=== PATIENT | female | born 1960 | race Caucasian/White ===

== ENCOUNTER 2023-07-31 12:46 | Emergency (ER) | payer OTHER, SELFPAY ==
[2023-07-31 12:56] VITALS: BP 128/89
[2023-07-31 13:26] LABS: % Basophils 0.6 % (0-2); % Eosinophils 2.2 % (0-6); % Immature Granulocytes 0.5 % (0-0.5); % Lymphocytes 20.1 % (20.5-51.1); % Monocytes 7.9 % (1.7-9.3); % Neutrophils 68.7 % (42.2-75.2); Absolute Eosinophils 0.1 10^3/uL (0-0.7); Absolute Lymphocytes 1.3 10^3/uL (1.2-3.4); Absolute Monocytes 0.5 10^3/uL (0.1-0.6); Absolute Neutrophils 4.3 10^3/uL (1.4-6.5); Hematocrit 42.1 % (37.0-47.0); Hemoglobin 14.2 g/dL (12.0-16.0); Mean Corp Hgb Conc. 33.7 g/dL (33.0-37.0); Mean Corpuscular Hgb 30.5 pg (27.0-31.0); Mean Corpuscular Volume 90.3 fL (81.0-99.0); Mean Platelet Volume 10.1 fL (7.4-10.4); Nucleated Red Blood Cells % 0 %; Platelet Count 256 10^3/uL (130-400); Red Blood Cell Count 4.66 10^6/uL (4.20-5.40); Red Cell Dist. Width 13.1 % (11.5-14.5); White Blood Cell Count 6.2 10^3/uL (4.8-10.8)
[2023-07-31 13:46] LABS: ALT (SGPT) 27 U/L (0-35); AST (SGOT) 26 U/L (14-36); Albumin 3.9 g/dl (3.5-5.0); Alkaline Phosphatase 61 U/L (38-126); Blood Urea Nitrogen 14 mg/dl (7-17); Calcium 9.3 mg/dl (8.4-10.2); Carbon Dioxide 28 mmol/L (22-30); Chloride 105 mmol/L (98-107); Glucose 80 mg/dl (70-99); Lipase 170 U/L (23-300); Sodium 137 mmol/L (135-145); Total Bilirubin 0.5 mg/dl (0.2-1.3); Total Protein 6.7 g/dl (6.3-8.2); eGFR > 60.00
[2023-07-31 13:58] LABS: Troponin I < 0.012 ng/ml
--- NOTE | 2023-07-31 16:34 | ED.GENMED ---
History of Present Illness
General
Chief Complaint: Chest Pain
Source: patient
Exam Limitations: none
Time Seen by Provider: 07/31/23 16:24
Nursing documentation reviewed up to this point in time: agreed with
Travel History
Have you had any contact with someone who has COVID-19?: No
Do you have any symptoms of coronavirus? Fever > 100 degrees, chills, cough, shortness of breath, sore throat, loss of taste or smell, muscle aches, or headache?: Yes
Symptoms:: cough
History of Present Illness
History of Present Illness:
63 yr old female presents to the ER for evaluation of chest pain. She reports she has had intermittent episodes of left-sided chest pain (under left )off and on since Saturday, for the past 4 days. She reports it is very sharp but intermittent.
It lasts between 5 and 7 minutes however today she presented to the ER because today episode lasted for about 15 minutes. She denies any radiation of pain. She does have pain when she takes a deep breath when she is having the chest pain. She
denies any recent trauma/lifting. She denies any history of DVT PE.
She had COVID in July,July 16 tested positive and has had a cough since.
She is not a smoker. No history of CAD.
Past History
Past History
ED Past Medical History: Other (c dif) and Other (Headaches, with frequent migraine)
ED Past Surgical History: Other (Lumpectomy, I&D with tooth extraction, several hysteroscopys, hysterectomy, tonsillectomy)
Social History
Personal:
Living: with family
Employment: Employed
Review of Systems
Review of Systems
Allergies reviewed?: Yes
All Other Systems: ROS reviewed and negative except as documented in HPI and ROS
Constitutional: Reports no symptoms; Denies fever, fatigue or chills
EENT: Reports no symptoms
Respiratory: Denies trouble breathing
Cardiac: Reports other (intermittent left side chest pain for past several days )
ABD/GI: Reports no symptoms
: Reports no symptoms
Musculoskeletal: Reports no symptoms
Skin: Reports no symptoms
Neurological: Reports no symptoms
Psychiatric: Reports no symptoms
Phy Exam
General Physical Exam
General Presentation: no apparent distress
General age: appears stated age
General Skin: warm and dry
General Habitus: normal
General Mental: alert
General Hydration: appears well hydrated
Cardiovascular Exam
Cardiovascular Exam: regular rate/rhythm, no murmur and normal peripheral pulses
Pulmonary Exam
Pulmonary Exam: lungs clear
Neurological Exam
Neurological Exam: alert and oriented x3
Musculoskeletal Exam
Musculoskeletal Exam: full ROM
Skin Exam
Skin Exam: normal color and warm/dry
Psychiatric Exam
Psychiatric Exam: normal mood/affect
Scores
Heart Score for Chest Pain Patients
STEMI patient?: Not applicable
Course
Orders/Labs/Results
Orders:
Orders
07/31/23 12:48
Electrocardiogram (*1) Urgent
Reason for Study: Chest Pain
EKG- Treatment ONCE
07/31/23 13:08
Complete Blood Count/With Diff Urgent
Comprehensive Metabolic Panel Urgent
Lipase Urgent
Troponin I Urgent
07/31/23 17:03
DDimer [D-Dimer] Urgent
07/31/23 17:43
Chest [CR Chest - 2 Views ] Urgent
Comment:
Reason For Exam: cp
Abnormal Lab Results
07/31/23
13:08
Lymphocytes % 20.1 L %
(20.5-51.1)
07/31/23 13:08
07/31/23 13:08
Vital Signs
Initial and Last Documented VS:
Initial Vital Signs
Temp Pulse Resp BP Pulse Ox
98.0 F 86 16 128/89 99
07/31/23 12:56 07/31/23 12:56 07/31/23 12:56 07/31/23 12:56 07/31/23 12:56
Last Documented Vital Signs
Temp Pulse Resp BP Pulse Ox
98.0 F 81 18 124/74 99
07/31/23 12:56 07/31/23 17:09 07/31/23 17:09 07/31/23 17:09 07/31/23 17:09
MDM/Problems Addressed
Differential Diagnosis Includes:
Not limited to muscular pain, pleuritic pain, less likely ACS less likely PE less likely dissection
MDM/Problems Addressed:
Patient is a 63-year-old female who presents with left-sided chest pain underneath her breast intermittently for the past several days she reports it is sharp lasted 5 to 7 minutes then goes away. Today lasted 15 minutes which have prompted her to
come to the ER. She did have COVID recently. She denies any fever or chills. She does have a mild cough.
Patient presents awake alert no acute distress asymptomatic now. She has no radiation of pain no back pain no arm pain.
Patient is EKG is unremarkable with a heart rate of 73 cardiac troponin as well as D-dimer are negative. No acute findings on chest x-ray. Possible pleuritic. Patient does report that she is under a lot of stress. Patient stable for discharge
home asymptomatic care will DC on chest pain hotline
*Radiology
Radiology exam reviewed: radiology read reviewed
*Pulse Oximetry
Patient hypoxic: no
*EKG
Interpreted by ED Provider?: Yes
Comparison EKG: no changes
Heart Rate: 73
Rate: normal
Rhythm: sinus
Ischemia: no ischemia
*Critical Care Note
Total Time (30-74mins, 75-104mins- exclusive of procedures): Not Applicable
ED Attending Note
-
Portions of this chart may have been created with voice recognition software.� Occasional wrong word or��sound alike� substitutions may have occurred due to the inherent limitations of voice recognition software.
Discharge Plan
Departure
Patient Disposition: Home (Routine Discharge)
Date of Disposition: 07/31/23
Time of Disposition: 18:56
Patient with high blood pressure during this ER visit?: No
Covid-19: Not Applicable
Discharge Problem:
Chest pain
Instructions: Chest Pain CBC Follow Up
Prescriptions:
No Action
citalopram 10 MG tablet
5 mg PO DAILY
nitazoxanide [Alinia] 500 MG tablet
500 mg PO DAILY
cephalexin 500 MG capsule
500 mg PO BID Qty: 10 1RF
sulfamethoxazole-trimethoprim 1 TABLET tablet
1 tab PO BID Qty: 10 1RF
magnesium citrate [Citroma] 300 ML solution
300 ml PO ONCE Qty: 1 0RF
Referrals:
Jose Jones MD [Active] -
Kita Hayden CRNP [Family Provider] -
Activity Restrictions/Additional Instructions:
As discussed your workup was unremarkable here in the ER. Please follow-up with cardiology. You were placed on the cardiology hotline. You should receive a phone call in the next several days however if you do not please call the office to
schedule an appointment as soon as possible. Return if any worsening of symptoms
Interventions
Interventions:
*Risk Screen - Suicide Last Done: 07/31/23 16:27
*General Assessment Last Done: 07/31/23 16:27
*Neglect/Abuse Screening Last Done: 07/31/23 16:27
ED- Fall Risk Assessment Last Done: 07/31/23 16:27
*ED COVID-19 Vaccine History Last Done: 07/31/23 12:56
ED- Cardiac Assessment Last Done: 07/31/23 16:27
[2023-07-31 17:09] VITALS: BP 124/74
[2023-07-31 17:25] LABS: D-Dimer 0.39 ug/mlFEU (0.00-0.50)
== END 2023-07-31 19:35 | disposition home or self-care (01) ==
LOC: EMR 12:46
PROVIDERS: Emergency Medicine; Nurse Practitioner; EMERGENCY PHYSICIAN Emergency Medicine; FAMILY PHYSICIAN Nurse Practitioner Family
DX: R07.9 Chest pain, unspecified (principal); R07.1 Chest pain on breathing; R05.9 Cough, unspecified; U07.1 COVID-19
CPT/HCPCS: 99285; 71046; 80053; 83690; 84484; 85025; 85379; 93005

== ENCOUNTER → 2023-08-27 07:29 | Outpatient (REF) | payer OTHER, SELFPAY | LOC: RCS 07:29 | PROVIDERS: ATTENDING PHYSICIAN Internal Medicine Cardiovascular Disease; FAMILY PHYSICIAN Nurse Practitioner Family | DX: R07.2 Precordial pain (principal) | CPT/HCPCS: 93017 ==

== ENCOUNTER → 2023-09-03 08:47 | Outpatient (REF) | payer OTHER, SELFPAY | LOC: HWRAD 08:47 | PROVIDERS: ATTENDING PHYSICIAN Nurse Practitioner Family | DX: M85.89 Other specified disorders of bone density and structure, multiple sites (principal) | CPT/HCPCS: 77080 ==

== ENCOUNTER 2025-02-12 06:19 | Day surgery (SDC) | payer OTHER, SELFPAY | END 2025-02-12 15:41 | disposition home or self-care (01) | LOC: GI 06:19 | PROVIDERS: ATTENDING PHYSICIAN Specialist | DX: R12 Heartburn (principal); K31.A19 Gastric intestinal metaplasia without dysplasia, unspecified site; K22.2 Esophageal obstruction; K31.7 Polyp of stomach and duodenum; K57.30 Diverticulosis of large intestine without perforation or abscess without bleeding; K64.8 Other hemorrhoids; K31.A11 Gastric intestinal metaplasia without dysplasia, involving the antrum; D12.3 Benign neoplasm of transverse colon; Z12.11 Encounter for screening for malignant neoplasm of colon; Z86.0101 Personal history of adenomatous and serrated colon polyps; Z80.0 Family history of malignant neoplasm of digestive organs | CPT/HCPCS: 45385; 43239; 88305; 88342 ==

== ENCOUNTER 2025-03-18 15:35 | Observation (INO) | payer OTHER, SELFPAY ==
[2025-03-18] VITALS (9 sets, daily range): BP systolic 119–161; BP diastolic 76–135; BMI 29.3; BMI 28.2
[2025-03-18 12:23] LABS: Hematocrit 43.1 % (37.0-47.0); Hemoglobin 14.0 g/dL (12.0-16.0); Mean Corp Hgb Conc. 32.5 g/dL (33.0-37.0); Mean Corpuscular Volume 91.5 fL (81.0-99.0); Nucleated Red Blood Cells % 0 %; Platelet Count 216 10^3/uL (130-400); Red Cell Dist. Width 13.2 % (11.5-14.5)
--- NOTE | 2025-03-18 12:27 | ED.GENMED ---
History of Present Illness
General
Chief Complaint: Weakness
Source: patient and family
Time Seen by Provider: 03/18/25 11:39
History of Present Illness
History of Present Illness:
64-year-old female with past medical history of migraine disorder, questionable history of a CVA in her 20s, IBS presenting to the emergency department for evaluation after she started feeling abnormal on the left side of her body last night around
9 PM described as if she were 'gumby' and that she was drifting to her left-hand side. Patient thought it was related to a stressful day at work so decided to go to bed, woke up still feeling this way and upon getting up to ambulate felt as if she
were drifting to the left, contacted her primary care provider who was able to get her in for an appointment, at that appointment it was noted she was much more hypertensive than usual and was recommended to come to the ER for further evaluation.
Patient notes no other symptoms at present time denying any speech difficulties, visual disturbances, chest pain, shortness of breath, focal weakness or numbness. She was unable to tell me much information about the possible CVA when she was in her
20s but was able to tell me that her mother from a hemorrhagic CVA in her 90s.
Past History
Past History
ED Past Medical History: Other (c dif) and Other (Headaches, with frequent migraine)
ED Past Surgical History: Other (Lumpectomy, I&D with tooth extraction, several hysteroscopys, hysterectomy, tonsillectomy)
Social History
Tobacco: Non-smoker
Alcohol: None
Drug: None
Personal:
Living: with family
Employment: Employed
Review of Systems
Review of Systems
All Other Systems: ROS reviewed and negative except as documented in HPI and ROS
Phy Exam
Physical Exam
Physical Exam:
GENERAL: Alert , in no apparent distress
HEAD: Normocephalic atraumatic
EYE: pupils equal and reactive, 3mm bilateral, EOMI, no visual fied cuts
NECK: Supple
ENT: o/p clr, mmm.
CARDIAC: Regular rate and rhythm .
LUNGS: Clear breath sounds bilaterally, no acute respiratory distress, no wheezes/rales/rhonchi
ABDOMEN: Soft, without focal tenderness, no r/g, no cvat
NEUROLOGICAL: Alert and oriented, no focal neuro deficits, [place] x 4. strength 5/5 b/l UE and LE. sensory grossly intact throughout, ambulatory with steady but slow gait, no aphasia, no dysarthria, no droop. no drift
SKIN: Warm and dry, skin intact.
MUSCULOSKELETAL: No edema, well perfused.
PSYCH: Normal and appropriate interaction.
Scores
NIH Stroke Score
Level of Consciousness: 0 - Alert
LOC Questions: 0-Answers both correctly
LOC Commands: 0-Performs both correctly
Best Horizontal Gaze: 0-Normal
Visual Hardy: 0=Normal, no visual loss
Facial Palsy: 0=Normal, symmetrical
Motor - Right Arm: 0=No drift 10 seconds
Motor - Left Arm: 0=No drift 10 seconds
Motor - Right Le-No drift 5 seconds
Motor - Left Le-No drift 5 seconds
Limb Ataxia: 0-Absent
Sensation: 0-Normal
Best Language: 0-No aphasia
Dysarthria: 0-Normal
Extinction and Inattention: 0-No abnormality
NIH Total Score:: 0
Heart Failure Risk
Heart Failure Risk Score: Not Applicable
Heart Score for Chest Pain Patients
STEMI patient?: Not applicable
Withdrawal Assessment of Alcohol
Withdrawal Assessment Completed?: Not applicable
Course
Orders/Labs/Results
Orders:
Orders
03/18/25 12:09
CBC/With Diff [Complete Blood Count/With Diff] Urgent
Cardiovascular Evaluation Urgent
Comment: ADD ON
Comprehensive Metabolic Panel Urgent
Ferritin Urgent
Comment: ADD ON
Folate Urgent
Comment: ADD ON
Prothrombin Time Urgent
Vitamin B12 Urgent
Comment: ADD ON
03/18/25 12:19
CT Head & Neck Angio W/wo IV Urgent
Comment:
Reason For Exam: left sided deficits/weakness
03/18/25 12:37
Lyme Progressive Urgent
TSH Urgent
03/18/25 14:01
Aspirin 325 mg PO NOW STA
Clopidogrel Bisulfate [Plavix] 300 mg PO NOW STA
03/18/25 14:22
Clopidogrel Bisulfate [Plavix] 300 mg .ROUTE .STK-MED ONE
03/18/25 14:35
Rizatriptan Orally Disintegrat [[employer]inator (Orally Disintegrating)] 10 mg PO ONCE ONE
03/18/25 14:40
Admit/Transfer Patient As Directed
Co-Sign Provider:
Level of Care: Observation services
Assign to:: Telemetry
Physician / Group: Maggie Moreno
Diagnosis: CVA/TIA symptoms
Reason for Telemetry: CVA/TIA
Date to Stop Telemetry: 03/21/25
Time to Stop Telemetry: 11:00
PRN Pain Medication Management As Directed
May give lesser potent ordered pain med per pt: Yes
preference::
Protocol:: Medication orders for pain may be administered in a
manner that supports deferring to patient preference
when the pt is:
- Requesting an ordered lesser potent pain medication.
Least to most potent pain medications are defined
as: acetaminophen < NSAID < tramadol < opioids
(morphine, oxycodone, hydromorphone).
- Requesting a lesser dose of the same medication IF
ORDERED.
- Requesting a less intrusive route of administration
if both routes are prescribed by the provider (PO <
IV).
03/18/25 14:41
Code Status As Directed
Resuscitation Status: Full Code
03/18/25 14:46
Urinalysis Routine
Date Specimen was Collected: 03/18/25
Time Specimen was Collected: 15:09
03/18/25 Dinner
Regular
At Your Request: Full Participation
03/18/25 15:03
Add On- LAB Routine
Tests Added?: folate, ferritin, B12, lipid panel, hbA1c
03/18/25 15:16
ESR [Erythrocyte Sed Rate] Urgent
Hemoglobin A1c [Glycohemoglobin (HgbA1c)] Routine
Troponin I Urgent
03/21/25 11:00
DC Protocol for Telemetry ONCE
Abnormal Lab Results
03/18/25
12:09
MCHC 32.5 L g/dL
(33.0-37.0)
MPV 10.7 H fL
(7.4-10.4)
Lymphocytes % 20.1 L %
(20.5-51.1)
Total Cholesterol 246 H mg/dl
(50-199)
03/18/25 12:09
03/18/25 12:09
Vital Signs
Initial and Last Documented VS:
Initial Vital Signs
Temp Pulse Resp BP Pulse Ox
98.7 F 70 18 161/105 98
03/18/25 11:31 03/18/25 11:31 03/18/25 11:31 03/18/25 11:31 03/18/25 11:31
Last Documented Vital Signs
Temp Pulse Resp BP Pulse Ox
98.7 F 60 18 133/90 99
03/18/25 11:31 03/18/25 14:00 03/18/25 14:00 03/18/25 13:28 03/18/25 14:00
MDM/Problems Addressed
Differential Diagnosis Includes:
CVA
ICH
Malignancy
HTN crisis
Thyroid dysfunction
Electrolyte imbalance
Less concern for infectious etiology
MDM/Problems Addressed:
64-year-old female ending to the emergency department for evaluation of left-sided weakness since last night around 9 PM. I did not call a stroke alert given patient is outside the window of TNK administration as well as her NIH score is 0 and not
a candidate however we did order a stat CT of the head/CTA of the head and neck. Patient is still hypertensive at time of my exam, 180/95. Labs and EKG ordered. Disposition pending
*Radiology
Radiology exam reviewed: radiology read reviewed
*Pulse Oximetry
SaO2: 98
Oxygen Mode of Delivery: Room air
Patient hypoxic: no
*Wash Test Checker Interpretation
Rate: normal
Heart Rate: 84
Rhythm: sinus
*Critical Care Note
Total Time (30-74mins, 75-104mins- exclusive of procedures): Not Applicable
Patient Management
Discussion with other providers: Hospitalist and [employer]
Escalation/DeEscalation of care consider admission/obs:
CT and CTA are negative for any acute pathologies. Seen by neurology who still concerned patient could have had a CVA versus atypical migraine presentation. They are recommending admission for DAPT as well as MRI. They will continue to follow-up
with the patient's admission. Hospitalist team was notified and accepts for continued evaluation and treatment.
ED Attending Note
-
Portions of this chart may have been created with voice recognition software.� Occasional wrong word or��sound alike� substitutions may have occurred due to the inherent limitations of voice recognition software.
Discharge Plan
Departure
Patient Disposition: Admit
Date of Disposition: 03/18/25
Time of Disposition: 14:02
Presentation/result/management discussed w/ accepting MD/DO: Hospitalist
Discharge Problem:
Suspected cerebrovascular accident (CVA)
Interventions
Interventions:
*Risk Screen - Suicide Last Done: 03/18/25 11:31
*General Assessment Last Done: 03/18/25 11:31
*Neglect/Abuse Screening Last Done: 03/18/25 11:31
*ED- Fall Risk Assessment Last Done: 03/18/25 11:31
*ED COVID-19 Vaccine History Last Done: 03/18/25 11:31
*ED Influenza Vaccine History Last Done: 03/18/25 11:31
ED- Cardiac Assessment Last Done: 03/18/25 12:01
ED- Neurological Assessment Last Done: 03/18/25 15:21
ED- Pulmonary Assessment Last Done: 03/18/25 12:01
[2025-03-18 12:34] LABS: INR 0.89; PT 12.5 Sec (11.4-14.6)
[2025-03-18 12:46] LABS: ALT (SGPT) 27 U/L (0-35); AST (SGOT) 30 U/L (14-36); Alkaline Phosphatase 62 U/L (38-126); Blood Urea Nitrogen 14 mg/dl (7-17); Calcium 9.5 mg/dl (8.4-10.2); Carbon Dioxide 28 mmol/L (22-30); Chloride 107 mmol/L (98-107); Estimated Creatinine Clearance 79 ml/min; Glucose 98 mg/dl (70-99); Potassium 4.0 mmol/L (3.5-5.1); Sodium 139 mmol/L (135-145); eGFR > 60.00
[2025-03-18 12:55] LABS: Albumin 4.4 g/dl (3.5-5.0); Total Protein 7.0 g/dl (6.3-8.2)
--- NOTE | 2025-03-18 13:24 | CON.NEURO4 ---
Addendum entered and electronically signed by Lorne Gutierrez MD 03/18/25 20:57:
I have seen and examined the patient on 03/18/2025. I have also discussed the patient's assessment and the management plan with nurse practitioner Mami Cotto and I agree with her diagnosis and management plan. Given below is my assessment and
management plan.
The patient is a 64 years old female who presented to the hospital with left-sided weakness and sensory change. The patient is followed by neurologist Dr. Abad for migraines. She has a history of migraine with aura, however, she denies headache
at this time. Patient reports that yesterday (03/17/25) she finished working at her desk around 2100 and suddenly felt 'dizzy,' as if she had been 'drugged.' She went to stand up and noticed that her left arm and leg felt heavy and uncoordinated and
she felt that when she would walk she was drifting to the left side.
On neurologic examination, the patient is alert and oriented x 3, speech is clear, the cranial nerves II to XII are grossly intact, the strength is grossly 4/5 in the left upper and lower extremities and the strength is grossly 5/5 in the right
upper and lower extremities, the sensations are grossly intact and the cerebellar examination does not show limb ataxia.
NIH stroke scale is equal to 2.
The CT of the head did not show any acute intracranial abnormality. CTA of the head and neck was unremarkable.
The patient is not a candidate for thrombolytic therapy as she has a low NIH stroke scale as well as she is outside the time window. The patient is going to be on stroke pathway with aspirin 81 mg daily, Plavix 75 mg daily for 21 days and
atorvastatin 40 mg daily. Plan is to get MRI of the brain and an echocardiogram.
Original Note:
Consultation - Neurology 4
-
CONSULTING PHYSICIAN: Lorne Gutierrez MD
REFERRING PHYSICIAN: ER/Neo Hussein PA-C
DICTATED BY: SYBIL August
DATE/TIME OF REQUEST: 03/18/25
DATE/TIME OF CONSULTATION: 03/18/25
Reason for Consultation: Left-sided weakness
History of Present Illness:
This is a 64-year-old female who has presented to the hospital with report of left-sided heaviness and sensation change. Patient is followed by Neurology Dr. Abad at [facility] for migraines. She reports an extensive history of
migraine headaches associated with visual aura, photo/phonophobia, nausea, and vomiting. She is currently on Aimovig for headache prevention and uses rizatriptan for headache relief.
Patient reports that yesterday (03/17/25) she finished working at her desk around 2100 and suddenly felt 'dizzy,' as if she had been 'drugged.' She went to stand up and noticed that her left arm and leg felt heavy and uncoordinated. She had a
stressful day at work and proceeded to go to bed thinking she was just tired. Upon waking up this morning (03/18/25), she notes that her left side still felt 'heavy,' in addition to hot, and walking was abnormal due to drifting to the left. She also
notes a left posterior head pressure. She is sitting in the dark currently due to feeling that a migraine may develop but currently denies her typical migraine symptoms. CTA head/neck was obtained on arrival and is negative for any acute
abnormalities. NIHS is 2 for slight drift in the LUE and LLE. She is not a candidate for TNK/IAT due to low NIHSS, outside of time window, and no LVO. She denies any vision changes, speech/swallow difficulty, and numbness. She reports having a
generalized heaviness sensation with prior migraines but never weakness like she has now. She is not taking any blood thinning medications.
Past Medical History: Migraine with aura, stroke-like symptoms in her 20's, c. diff, endometriosis, L facial cellulitis, asthma, diverticulosis
Surgical History: Lumpectomy, I&D with tooth extraction, hysterectomy, tonsillectomy
Family History: Mother- intracranial hemorrhage
Social History: Denies tobacco, alcohol, and illicit drug use.
Allergies: Clindamycin, amoxicillin, polymyxin B.
Home Medications: See below.
Review of Symptoms:
Patient denies any fever, headache, chest pain, shortness of breath, GI or symptoms.
�Per the HPI.�All systems are reviewed negative except above.
Physical Exam:
The patient is afebrile, abdomen is nondistended, breathing is unlabored, skin is warm and dry, no edema.
NIH Stroke Scale:
I performed the NIH stroke scale on the patient on 03/18/25 at 1345. The patient scored 2 points on the NIH stroke scale assessment, which were assigned as follows: See below.
Neurologic Examination:
The patient is awake, alert and oriented x 3. She is able to follow commands and answer questions appropriately. There is no aphasia or dysarthria. On cranial nerve assessment, pupils are 3 mm bilateral, round and reactive to light and
accommodation. Visual hardy are full. Extraocular movements are intact. Facial sensations are intact and bilaterally symmetrical, there is no facial asymmetry. Hearing is intact bilaterally to normal conversation volume. Tongue palate and uvula are
midline. Motor strengths are 5/5 right upper, 5-/5 left upper, 5/5 right lower, 5-/5 left lower extremity on medical research [place] scale. There is slight drift in the LUE and LLE. No involuntary movement noted. Sensations of touch are intact and
bilaterally symmetrical. There was no extinction noted on double simultaneous stimulation. Coordination is intact by finger to nose bilaterally.
Lab Results: See below.
Neuro Imaging:
1. CTA Head/Neck 03/18/25: CT the Head without acute intracranial abnormality. CTA of the Neck without internal carotid artery stenosis, internal carotid artery dissection or vertebral artery dissection bilaterally. CTA of the Head with patent
proximal intracranial arterial circulation bilaterally.
Differentials for the patient's presentation include:
1. Left-sided weakness and sensation change; etiology is possibly complex migraine but given no history of previous symptoms, cannot entirely exclude a small stroke or TIA producing symptoms.
Patient has the following risk factors for their symptoms: hx migraine with aura
IV Tenecteplase/IAT candidacy: She is not a candidate for TNK/IAT due to low NIHSS, outside of time window, and no LVO.
Recommendations:
-Initiate DAPT with aspirin 81mg and clopidogrel 75mg daily for 21 days.
-Permissive hypertension SBP <220, DBP<120 until 2100 tonight, then goal normotension.
-MRI brain noncontrast pending.
-NIHSS and neurological checks per unit guidelines.
-Provide patient with a stroke education packet.
-LDL goal <70. check a lipid panel.
-Goal normoglycemia, check a hbA1c.
-Checking blood work for metabolic abnormalities.
-PT/OT evaluations.
-DVT prophylaxis.
Discussed patient care with: Dr. Gutierrez, the patient
Vital Signs and Labs
-
Vital Signs and Labs:
Vital Signs
Temp Pulse Resp BP Pulse Ox
98.7 F 55 14 160/92 98
03/18/25 11:31 03/18/25 12:30 03/18/25 12:30 03/18/25 12:00 03/18/25 12:30
Lab Results
03/18/25 12:09
03/18/25 12:09
PT 12.5 Sec (11.4-14.6) 03/18/25 12:09
INR 0.89 03/18/25 12:09
Sodium 139 mmol/L (135-145) 03/18/25 12:09
Potassium 4.0 mmol/L (3.5-5.1) 03/18/25 12:09
BUN 14 mg/dl (7-17) 03/18/25 12:09
Glucose 98 mg/dl (70-99) 03/18/25 12:09
Calcium 9.5 mg/dl (8.4-10.2) 03/18/25 12:09
Medications
-
Home Medications
�Medication �Instructions �Recorded
cephalexin 500 mg capsule 500 mg PO BID #10 caps 01/29/15
citalopram 10 mg tablet 5 mg PO DAILY 01/29/15
nitazoxanide 500 mg tablet (Alinia) 500 mg PO DAILY 01/29/15
sulfamethoxazole 800 1 tab PO BID #10 tabs 01/29/15
mg-trimethoprim 160 mg tablet
magnesium citrate (Citroma oral 300 ml PO ONCE ##1 03/08/19
solution)
NIH Stroke Score
Subsequent NIH Scale
Date of Subsequent NIH Scale: 03/18/25
Time of Subsequent NIH Scale: 13:45
NIH Stroke Score
Level of Consciousness: 0 - Alert
LOC Questions: 0-Answers both correctly
LOC Commands: 0-Performs both correctly
Best Horizontal Gaze: 0-Normal
Visual Hardy: 0=Normal, no visual loss
Facial Palsy: 0=Normal, symmetrical
Motor - Right Arm: 0=No drift 10 seconds
Motor - Left Arm: 1=Drift < 10 seconds
Motor - Right Le-No drift 5 seconds
Motor - Left Le-Drift < 5 seconds
Limb Ataxia: 0-Absent
Sensation: 0-Normal
Best Language: 0-No aphasia
Dysarthria: 0-Normal
Extinction and Inattention: 0-No abnormality
NIH Total Score:: 2
Modified Laurel (mRS) Score
Modified [place] Scale (mRS): Slight disability. Able to look after own affairs.
Score: 2
Alteplase Contraindication
Inclusion and Exclusion criteria reviewed: Yes
Reasons for NON-Tx with Thrombolytics ABSOLUTE Exclusions: Greater than 4.5 hrs from onset of sxs
IAT Contraindications: NIHSS < 6
[2025-03-18 13:34] LABS: TSH 2.65 uIU/ml (0.47-4.68)
--- NOTE | 2025-03-18 14:08 | HPS.HSE ---
Addendum entered and electronically signed by Maggie Moreno MD 03/18/25 17:55:
This is an addendum to the H&P written by Mami Velasquez on 03/18/2025. Patient seen and examined independently with HIGH SCHOOL COMPUTER SCIENCE TEACHER.
64-year-old female past medical history of migraines, IBS, presenting with abnormal feeling of heaviness on the left side since last night. �She went to see primary care physician was noted to be hypertensive and told to come to the emergency room.
�Denies any speech difficulties, visual disturbance, chest pain, shortness of breath, focal weakness or numbness.
Vital signs show blood pressure 160 systolic.
Labs unremarkable.
CTA head and neck shows no acute abnormality.
Concern for acute CVA versus atypical migraine. �Aspirin and Plavix given. �Check MRI brain. �Neurology consulted.
Original Note:
Family Physician
-
Family Physician: NOT KNOW UNKNOWN - PT DOES
Chief Complaint
-
left-sided weakness
History of Present Illness
Patient is a 64-year-old female with past medical history significant for migraines and depression/anxiety who presented to [facility] ED for evaluation of left-sided weakness. Patient reports that at around [id number] last night she had an acute onset of
left-sided weakness and heaviness. She describes her arm as feeling heavy and leg feeling like it was suddenly shorter than the right. She felt she kept drifting to the left. She decided to go to bed and when she woke around 0500 this morning the
symptoms were still present. She called and made appointment with primary care who evaluated her and requested she go to ED for further workup. Patient does acknowledge some associated lightheaded/dizziness with symptoms. Denies any vision changes,
confusion, slurred speech, facial droop, chest pain or palpitations.
Medical History
Past Medical History
Past Medical History: Reports Other
Additional Past Medical History:
migraines
depression/anxiety
Past Surgical History: Reports Other
Additional Past Surgical History:
hysteroscopy
lumpectomy
tonsillectomy
hysterectomy
Social History
Tobacco: Non-smoker
Alcohol: Occasional
Drug: None
Employment: Employed
Family History
Family History: Other (Father: bladder cancer, DM; Mother: CVA )
Allergies / Home Medications
Allergies reflects when Allergies were last updated in [facility].
Home Medications with original date entered in [facility]
Allergy/Medication List:
Allergies
Allergy/AdvReac Type Severity Reaction Status Date / Time
clindamycin Allergy Severe C-DIFF Verified 03/18/25 11:34
amoxicillin Allergy Unknown Verified 03/18/25 11:34
polymyxin B Allergy Rash Verified 03/18/25 11:34
Home Medications
Lactobac no.2-Bifidobac no.1-S. thermo 112.5 billion cell capsule (Visbiome) 1 cap PO DAILY 03/18/25
citalopram 40 mg tablet 40 mg PO HS 03/18/25
erenumab-aooe 140 mg/mL subcutaneous auto-injector (Aimovig Autoinjector) 140 mg SC QMONTH 03/18/25
estradiol 0.5 mg tablet 0.5 mg PO DAILY 03/18/25
fluticasone propionate 50 mcg/actuation nasal spray,suspension 1 spray intranasal DAILYPRN PRN sinus congestion 03/18/25
omeprazole 20 mg capsule,delayed release 20 mg PO DAILY 03/18/25
pseudoephedrine HCl 30 mg tablet (Sudafed) 30 mg PO DAILYPRN PRN sinus congestion 03/18/25
rizatriptan 10 mg tablet 10 mg PO PRN PRN migraine 03/18/25
Review of Systems
-
History Source: Patient
Constitutional: Denies Fever or Chills
EENT: Denies Sore Throat
Respiratory: Denies Cough, Hemoptysis or Trouble Breathing
Cardiac: Denies Chest Pain, Diaphoresis, Palpitations or Syncope
Abdomen/GI: Denies Abdominal Pain, Nausea, Vomiting or Diarrhea
: Denies Dysuria or Urgency
Skin: Denies Rash
Neurological: Reports Dizzy, Headache and Weakness; Denies Numbness
Physical Exam
Vital Signs
Vital Signs
Temp Pulse Resp BP Pulse Ox
98.7 F 55 14 160/92 98
03/18/25 11:31 03/18/25 12:30 03/18/25 12:30 03/18/25 12:00 03/18/25 12:30
Physical Exam
General: Well Developed, Well Nourished, No Apparent Distress, Comfortable, Conversant and Obese
HEENT: NormoCephalic, Moist mucous membranes, Atraumatic, Nose Appears Normal and Ears Appear Normal
Respiratory: Clear and Non Labored Respirations; No Wheezes, Rales, Rhonchi or Crackles
Cardiac: S1/S2 and Regular Rhythm; No Murmur, Rub or Gallop
GI: Soft, Non Tender, Non Distended and Normal Bowel Sounds
Musculoskeletal: No Clubbing, No Cyanosis and No Edema
Skin: Warm and IV/Catheter Site
Neuro: Awake, AO x 3, No Motor Deficits, Nonfocal/grossly intact, Cranial Nerves Intact (II-XII) and No Sensory Deficits; No Slurred Speech, Facial Droop, Tremors or Sedated
Hematologic/Lymphatic: No Lymphadenopathy
Psych: Calm and Intact Judgment/Insight
Laboratory Results
-
03/18/25 12:09
03/18/25 12:09
Laboratory Results
PT 12.5 Sec (11.4-14.6) 03/18/25 12:09
INR 0.89 03/18/25 12:09
Total Bilirubin 0.6 mg/dl (0.2-1.3) 03/18/25 12:09
AST 30 U/L (14-36) 03/18/25 12:09
ALT 27 U/L (0-35) 03/18/25 12:09
Alkaline Phosphatase 62 U/L (38-126) 03/18/25 12:09
Data Reviewed
-
CT Scan: Report Reviewed by me (Head and Head/Neck CTA: CT the Head without acute intracranial abnormality. CTA of the Neck without internal carotid artery stenosis, internal carotid artery dissection or vertebral artery dissection bilaterally.
CTA of the Head with patent proximal intracranial arterial circulation bilaterally.)
Lab Data: Labs Reviewed by me
Impression/Plan
-
IMPRESSION/PLAN:
#left-sided weakness 2/2 migraine vs. CVA/TIA
labs unremarkable
Head CT: CT the Head without acute intracranial abnormality.
Head/Neck CTA: CTA of the Neck without internal carotid artery stenosis, internal carotid artery dissection or vertebral artery dissection bilaterally.
CTA of the Head with patent proximal intracranial arterial circulation bilaterally.
- Admit to telemetry
- Consult Neurology
- MRI in morning
- start aspirin and Plavix
- NIH and neuro checks per protocol
#migraines
- continue Aimovig out patient
- continue PRN rizatriptan
#depression/anxiety
- continue citalopram
#GERD
- continue omeprazole
Code status: full code
DVT prophylaxis: SCDs
[2025-03-18] MEDS: ASPIRIN 325 MG PO (14:20)
[2025-03-18] MEDS: PLAVIX 300 MG PO (14:20)
[2025-03-18] MEDS: MAXALT MLT (ORALLY DISINTEGRATING) 10 MG PO (15:15)
[2025-03-18 15:55] LABS: Troponin I < 0.012 ng/ml
[2025-03-18 16:10] LABS: HDL Cholesterol 82 mg/dl; LDL Cholesterol, Calculated 150 mg/dl; Very Low Density Lipoprotein 14 mg/dl (0-30)
[2025-03-18 16:31] LABS: Urine Character Clear (Clear)
[2025-03-18 16:33] LABS: Ferritin 9.9 ng/ml (11.1-264.0)
[2025-03-18 17:04] LABS: Folate 11.0 ng/ml (2.76-20); Vitamin B12 582 pg/ml (239-931)
[2025-03-18] MEDS: TYLENOL 650 MG PO (22:06)
[2025-03-18] MEDS: CELEXA 40 MG PO (22:06)
[2025-03-19] VITALS (7 sets, daily range): BP systolic 115–144; BP diastolic 70–90; PULSE 76–78; O2SAT 96–98
--- NOTE | 2025-03-19 08:50 | PTOTSP ---
Speech Language Pathology
Pt seen for cognitive-linguistic evaluation via the [place] Cognitive Assessment (MOCA), version 8.2. Pt with an overall score of 24/30 where normal range is 26-30. Pt with the following scores on the following subtests:
Visuospatial/executive= 4/5
Naming= 3/3
Immediate memory (not scored)= 5/5 independently
Attention= 6/6
Language= 3/3
Abstraction= 1/2
Delayed recall= 1/5
Orientation= /6
Main difficulty noted with short-term memory. Pt reported some memory changes associated with aging. Unsure if related to this, acute issues, anxiety, lack of sleep, distraction from neighbor, or a combination. Provided brochure for outpatient
rehab as needed pending further testing. CRYPTOGRAPHIC TECHNICIAN to continue to follow.
[2025-03-19 09:09] LABS: Glycohemoglobin (HgbA1c) 5.4 % (4.0-5.6)
[2025-03-19] MEDS: ESTRACE 0.5 MG PO (09:09)
[2025-03-19] MEDS: PROTONIX 40 MG PO (09:09)
[2025-03-19] MEDS: PLAVIX 75 MG PO (09:10)
[2025-03-19] MEDS: ASPIR LOW (ENTERIC COATED) 81 MG PO (09:10)
--- NOTE | 2025-03-19 09:21 | PTOTSP ---
PATIENT ABLE TO DEMONSTRATE INDEPENDENCE WITH MOBILITY ON LEVEL SURFACES WELL ELEVATIONS REQUIRING NO FURTHER ACUTE CARE SKILLED NEEDS. PATIENT EAGER FOR DISCHARGE TO HOME. WILL DISCHARGE FROM P.T. SERVICES AT THIS TIME.
--- NOTE | 2025-03-19 09:21 | PTOTSP ---
Pt presents to OT with grossly intact cognition, good UB AROM, strength, sensation and coordination, and grossly intact vision/visual nunez. Currently at independent level with basic self care, transfers and functional mobility in room and bathroom
without AD. Pt did report headache of 8/10 at onset of session and 5/10 at end of session. No further skilled OT indicated at this time.
[2025-03-19] MEDS: TYLENOL 650 MG PO (09:41)
--- NOTE | 2025-03-19 10:20 | CM ---
Patient seen bedside w/ significant other, initial assessment completed. Patient is a 64-year-old female with past medical history significant for migraines and depression/anxiety who presented to [facility] ED for evaluation of left-sided weakness.
Patient resides w/ sig other in a 2 story townhouse, 2 steps to enter from the outside. Patient is independent in all areas, no DME reported. No SNF/HC hx. 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
Address, points of contact and insurance verified
PCP: Bruce Vasquez
[facility]
Patient admitted under obs services. OOBS form verbally reviewed, copy provided, copy on chart
Therapy assessed patient, no skilled needs indicated
Plan: Home, no needs
--- NOTE | 2025-03-19 10:29 | W.PN.HOSP.TC ---
Addendum entered and electronically signed by Pablo Caldwell MD 03/19/25 16:22:
addendum
MRI study discussed with patient and neurologist. Okay to go home. Outpatient follow-up with neurosurgery if needed
Patient will follow-up with her primary neurologist at [facility]. She was given a report of MRI and she was given CDs of the MRI
Discussed discharge directions with patient and her family. Given a note to work
She verbalized understanding to instruction.
Total discharge time spent to see the patient, examin the patient, review data, discuss discharge plan with patient, family, neurologist, nursing staff around 69 minutes
Original Note:
Today's Communication/Plan
-
f/w neurology recommendations
Assessment / Plan
Assessment / Plan
Physical Exam
General: Well Developed, Well Nourished, No Apparent Distress, Comfortable, Conversant and Obese
HEENT: Normocephalic, Moist mucous membranes, Atraumatic, Nose Appears Normal and Ears Appear Normal
Respiratory: Clear and Non Labored Respirations; No Wheezes, Rales, Rhonchi or Crackles
Cardiac: S1/S2 and Regular Rhythm; No Murmur, Rub or Gallop
GI: Soft, Non Tender, Non Distended and Normal Bowel Sounds
Musculoskeletal: No Clubbing, No Cyanosis and No Edema
Skin: Warm and IV/Catheter Site
Neuro: Awake, AO x 3, No Motor Deficits, Nonfocal/grossly intact, gait is normal, Cranial Nerves Intact (II-XII) and No Sensory Deficits; No Slurred Speech, Facial Droop, Tremors or Sedated
Psych: Calm and Intact Judgment/Insight
#left-sided weakness 2/2 migraine vs. CVA/TIA
she seems to feel better, still subjective weakness in left arm/ leg
CTA/ MRI no acute stroke
PT/OT/Speech: no skilled PT needed.
Per MRI, recommend with contrast due to hyperintense lesion in the high left posterior parietal region
Started on aspirin & Plavix/ statin per neurology
#migraines
- continue Aimovig out patient
- continue PRN rizatriptan
#depression/anxiety
- continue citalopram
#GERD
- continue omeprazole
Total time spent to see the patient, examine the patient, review of data and lab result, discuss treatment plan with patient, nursing staff around 55 minutes
Anticipated Discharge: Within 24 hours
Subjective/Interval History
-
Date of Service: March 19, 2025
No chest pain
No sob
No fevers
Objective Data
-
Vital Signs:
Vital Signs
Temp Pulse Resp BP Pulse Ox
97.6 F 61 16 135/85 98
03/19/25 07:51 03/19/25 07:51 03/19/25 07:51 03/19/25 07:51 03/19/25 09:03
I&O
03/18/25 03/19/25 03/20/25
06:59 06:59 06:59
Intake Total 240 / 240
Balance 240 / 240
--- NOTE | 2025-03-19 16:12 | PTCARENOTE ---
Pt AAO x3, [place] well, OOB in room/to BR; no c/o weakness/dizziness, only c/o LUE occ feels 'heavy'. VSS. Telemetry:NSR. ON room air- pulseox 95%, no SOB noted. Abd soft, rounded, deejay PO well. Voids in BR without difficulty. Resting in bed at
present, anticipating DC to home. Will continue to monitor.
--- NOTE | 2025-03-19 17:10 | W.PN.NEURO.1 ---
Addendum entered and electronically signed by Lorne Gutierrez MD 03/19/25 17:58:
The patient says that she feels stronger today and she says that she has only a very mild left upper and lower extremity weakness.
MRI of the brain with and without contrast did not show acute infarct or intracranial hemorrhage. There is a 1 cm meningioma arising from the left side of the interhemispheric falx causing mild mass effect on the adjacent left parietal lobe gyrus.
Echocardiogram shows an estimated left ventricular ejection fraction of about 55 to 60% and the interatrial septum appears to be normal with no evidence of interatrial shunting.
On neurologic examination, the patient is alert and oriented x 3, speech is clear, the cranial nerves II to XII are grossly intact, the strength is grossly 5-/5 in the left upper and lower extremities and the strength is grossly 5/5 in the right
upper and lower extremities, the sensations are grossly intact and the cerebellar examination does not show limb ataxia.
The patient likely had a TIA versus a complicated migraine, however cannot entirely exclude a small stroke.
The patient was not a candidate for thrombolytic therapy as she has a low NIH stroke scale as well as she is outside the time window. The patient is going to be on stroke pathway with aspirin 81 mg daily, Plavix 75 mg daily for 21 days and
atorvastatin 40 mg daily.
Recommend neurosurgery consultation for a 1 cm meningioma arising from the left side of the interhemispheric falx causing mild mass effect on the adjacent left parietal lobe gyrus.
I discussed with the patient in detail regarding the assessment and the management plan and she verbalized understanding of our discussion.
Follow-up with neurology in 3 weeks in the clinic. The patient will follow-up with her primary neurologist at [facility].
Discussed with Dr. Pablo Caldwell.
Original Note:
Today's Communication / Plan
-
The patient likely had a TIA versus a complicated migraine, however cannot entirely exclude a small stroke.
The patient is not a candidate for thrombolytic therapy as she has a low NIH stroke scale as well as she is outside the time window. The patient is going to be on stroke pathway with aspirin 81 mg daily, Plavix 75 mg daily for 21 days and
atorvastatin 40 mg daily. Plan is to get MRI of the brain and an echocardiogram.
Recommend neurosurgery consultation for a 1 cm meningioma arising from the left side of the interhemispheric falx causing mild mass effect on the adjacent left parietal lobe gyrus.
The patient will follow-up with her primary neurologist at [facility].
I discussed with the patient in detail regarding the assessment and the management plan and she verbalized understanding of our discussion.
Discussed with Dr. Pablo Caldwell.
Subjective/Objective
Subjective Data
Date of Service: March 19, 2025
The patient is a 64 years old female who presented to the hospital with left-sided weakness and sensory change. The patient is followed by neurologist Dr. Abad for migraines. She has a history of migraine with aura, however, she denies headache
at this time. Patient reports that yesterday (03/17/25) she finished working at her desk around 2100 and suddenly felt 'dizzy,' as if she had been 'drugged.' She went to stand up and noticed that her left arm and leg felt heavy and uncoordinated and
she felt that when she would walk she was drifting to the left side.
Today, the patient thinks that she is stronger in the left upper and lower extremities and she has only very mild weakness of the left upper and lower extremities at this time.
MRI of the brain with and without contrast did not show acute infarct or intracranial hemorrhage. There is a 1 cm meningioma arising from the left side of the interhemispheric falx causing mild mass effect on the adjacent left parietal lobe gyrus.
On neurologic examination, the patient is alert and oriented x 3, speech is clear, the cranial nerves II to XII are grossly intact, the strength is grossly 5-/5 in the left upper and lower extremities and the strength is grossly 5/5 in the right
upper and lower extremities, the sensations are grossly intact and the cerebellar examination does not show limb ataxia.
The CT of the head did not show any acute intracranial abnormality. CTA of the head and neck was unremarkable.
The patient likely had a TIA versus a complicated migraine, however cannot entirely exclude a small stroke.
The patient is not a candidate for thrombolytic therapy as she has a low NIH stroke scale as well as she is outside the time window. The patient is going to be on stroke pathway with aspirin 81 mg daily, Plavix 75 mg daily for 21 days and
atorvastatin 40 mg daily. Plan is to get MRI of the brain and an echocardiogram.
Recommend neurosurgery consultation for a 1 cm meningioma arising from the left side of the interhemispheric falx causing mild mass effect on the adjacent left parietal lobe gyrus.
The patient will follow-up with her primary neurologist at [facility].
I discussed with the patient in detail regarding the assessment and the management plan and she verbalized understanding of our discussion.
Discussed with Dr. Pablo Caldwell.
Objective Data
Vital Signs
Temp Pulse Resp BP Pulse Ox
36.4 C 78 16 116/70 95
03/19/25 15:28 03/19/25 15:28 03/19/25 15:28 03/19/25 15:28 03/19/25 16:10
Lab Results
03/18/25 12:09
03/18/25 12:09
PT 12.5 Sec (11.4-14.6) 03/18/25 12:09
INR 0.89 03/18/25 12:09
Sodium 139 mmol/L (135-145) 03/18/25 12:09
Potassium 4.0 mmol/L (3.5-5.1) 03/18/25 12:09
BUN 14 mg/dl (7-17) 03/18/25 12:09
Glucose 98 mg/dl (70-99) 03/18/25 12:09
Calcium 9.5 mg/dl (8.4-10.2) 03/18/25 12:09
LDL Cholesterol, Calc 150 mg/dl 03/18/25 12:09
Vitamin B12 582 pg/ml (239-931) 03/18/25 12:09
Patient Allergies
clindamycin Allergy (Severe, Verified 03/18/25 11:34)
C-DIFF
amoxicillin Allergy (Verified 03/18/25 11:34)
Unknown
polymyxin B Allergy (Verified 03/18/25 11:34)
Rash
Vital Signs and Labs
-
Vital Signs and Labs:
Vital Signs
Temp Pulse Resp BP Pulse Ox
36.4 C 78 16 116/70 95
03/19/25 15:28 03/19/25 15:28 03/19/25 15:28 03/19/25 15:28 03/19/25 16:10
Lab Results
03/18/25 12:09
03/18/25 12:09
PT 12.5 Sec (11.4-14.6) 03/18/25 12:09
INR 0.89 03/18/25 12:09
Sodium 139 mmol/L (135-145) 03/18/25 12:09
Potassium 4.0 mmol/L (3.5-5.1) 03/18/25 12:09
BUN 14 mg/dl (7-17) 03/18/25 12:09
Glucose 98 mg/dl (70-99) 03/18/25 12:09
Calcium 9.5 mg/dl (8.4-10.2) 03/18/25 12:09
LDL Cholesterol, Calc 150 mg/dl 03/18/25 12:09
Vitamin B12 582 pg/ml (239-931) 03/18/25 12:09
Medications
-
Active Medications
Generic Name Dose Route Start Last Admin
Trade Name Freq PRN Reason Stop Dose Admin
Acetaminophen 650 mg 03/18/25 16:37 03/19/25 09:41
Acetaminophen 325 Mg Tablet PO 04/15/25 16:36 650 mg
Q4HPRN PRN Administration
mild pain/VILLALBA/temp> 100.4F
Aspirin 81 mg 03/19/25 08:00 03/19/25 09:10
Aspirin 81 Mg (Enteric Coated) Tablet PO 04/16/25 07:59 81 mg
DAILY MARVA Administration
Atorvastatin Calcium 40 mg 03/19/25 18:00
Atorvastatin (Lipitor) 40 Mg Tablet PO 04/16/25 17:59
QPM MARVA
Citalopram Hydrobromide 40 mg 03/18/25 22:00 03/18/25 22:06
Citalopram 40 Mg Tablet PO 04/15/25 21:59 40 mg
HS MARVA Administration
Clopidogrel Bisulfate 75 mg 03/19/25 08:00 03/19/25 09:10
Clopidogrel 75 Mg Tablet PO 04/16/25 07:59 75 mg
DAILY MARVA Administration
Estradiol 0.5 mg 03/19/25 08:00 03/19/25 09:09
Estradiol 1 Mg Tablet PO 04/16/25 07:59 0.5 mg
DAILY MARVA Administration
Pantoprazole Sodium 40 mg 03/19/25 08:00 03/19/25 09:09
Pantoprazole 40 Mg Delayed Release Tablet PO 04/16/25 07:59 40 mg
DAILY MARVA Administration
Home Medications
�Medication �Instructions �Recorded
Lactobac no.2-Bifidobac no.1-S. 1 cap PO DAILY Gastrointestinal 03/18/25
thermo 112.5 billion cell capsule Issue
(Visbiome)
citalopram 40 mg tablet 40 mg PO HS Depression 03/18/25
erenumab-aooe 140 mg/mL 140 mg SC QMONTH Migraine, 03/18/25
subcutaneous auto-injector prevention
(Aimovig Autoinjector)
estradiol 0.5 mg tablet 0.5 mg PO DAILY Hormonal Agent 03/18/25
fluticasone propionate 50 1 spray intranasal DAILYPRN PRN 03/18/25
mcg/actuation nasal sinus congestion
spray,suspension
omeprazole 20 mg capsule,delayed 20 mg PO DAILY Gastrointestinal 03/18/25
release Issue
pseudoephedrine HCl 30 mg tablet 30 mg PO DAILYPRN PRN sinus 03/18/25
(Sudafed) congestion
rizatriptan 10 mg tablet 10 mg PO PRN PRN migraine 03/18/25
aspirin 81 mg tablet,delayed 81 mg PO DAILY #30 tabs 03/19/25
release
atorvastatin 40 mg tablet 40 mg PO QPM #30 tabs 03/19/25
clopidogrel 75 mg tablet 75 mg PO DAILY #21 tabs 03/19/25
--- NOTE | 2025-03-20 14:00 | W.DCSUMMARY ---
Discharge Summary
Discharge Data
Date of Admission: 03/18/25
Date of Discharge: 03/19/25
-
Pending Results: No
Hospital Course
64 years old female admitted to the hospital left-sided weakness. Patient was evaluated by neurologist. She was out of window for thrombolytic therapy and also low NIH stroke scale. CT of the head did not show acute intracranial abnormality. CTA
of the head and neck was unremarkable. Neurologist recommended MRI study. Initial MRI without contrast did not show acute stroke but there was hyperintense lesion in the high left posterior parietal region may reflect a small mass such as
meningioma or focal gliosis, recommended repeat imaging with gadolinium contrast. repeat MRI with contrast showed no evidence for acute infarct/hemorrhage, 1.0 cm meningioma arising from the left side of the interhemispheric falx causing mild mass
effect on the adjacent left parietal lobe gyrus. Neurologist followed the patient and recommended dual antiplatelet therapy for 21 days then continue with aspirin on board. Also recommended statin therapy. Neurologist felt that event could be TIA
versus a complicated migraine however could not entirely exclude a small stroke. Patient was not taking antiplatelet therapy prior to this event. Patient was counseled regarding potential side effects of aspirin, Plavix and Lipitor, she verbalized
understanding. Result of MRI regarding meningioma will was discussed with neurologist and recommended outpatient neurosurgery evaluation. Patient wanted to follow-up with her primary neurologist and GI physician, she was given information for a
local neurosurgery services. Patient remained hemodynamically stable. She was evaluated by PT/OT/speech with no skilled services needed. Patient was discharged home in a stable condition.
Discharge Plan
-
Patient Disposition: Home (Routine Discharge)
Discharge Diagnosis/Procedures: You were admitted with left-sided weakness. MRI study did not show stroke. We are treating you as possible TIA. Take aspirin and Plavix for 21 days then continue on aspirin. We started you on new medicine called
Lipitor/atorvastatin for management of high cholesterol.
Potential side effects of aspirin and, Plavix include GI bleeding, bruising.
Potential side effects of Lipitor include myositis/muscle weakness, elevated liver enzyme. Follow-up with your primary care doctor
You are seen by neurologist. Please follow-up with your primary neurologist for further recommendation regarding your migraine medications.
Diet: As tolerated
Referrals:
Ramin Mejia DO [Active, Neurosurgery]
Referral Note: Follow-up with neurosurgery for evaluation of meningioma
Bruce Vasquez MD [[facility]
Prescriptions:
New
atorvastatin 40 mg Tablet
40 mg PO QPM Qty: 30 0RF
clopidogrel 75 mg Tablet
75 mg PO DAILY Qty: 21 0RF
aspirin 81 mg Tablet,Delayed Release (Dr/Ec)
81 mg PO DAILY Qty: 30 0RF
Continued
citalopram 40 mg tablet
40 mg PO HS
rizatriptan 10 mg tablet
10 mg PO PRN PRN (Reason: migraine)
omeprazole 20 mg capsule,delayed release(DR/EC)
20 mg PO DAILY
pseudoephedrine HCl [Sudafed] 30 mg Tablet
30 mg PO DAILYPRN PRN (Reason: sinus congestion)
estradiol 0.5 mg tablet
0.5 mg PO DAILY
fluticasone propionate 50 mcg/actuation [place],Suspension
1 spray INTRANASAL DAILYPRN PRN (Reason: sinus congestion)
Visbiome 112.5 billion cell Capsule
1 cap PO DAILY
Aimovig Autoinjector 140 mg/mL Auto-Injector
140 mg SC QMONTH
Discharge Orders:
Discharge Patient (As Directed); Ordered 03/19/25
Ordered By: Pablo Caldwell
Discharge Date and Time
Discharge Date/Time: 03/19/25 18:20
Print Language: BRUNEIAN
[2025-03-22 16:07] LABS: Lyme Antibody Screen, EIA Negative (Negative)
== END 2025-03-19 18:20 | disposition home or self-care (01) ==
LOC: 4 EAST ACU 15:35
PROVIDERS: Nurse Practitioner Family; Physician Assistant Medical; ADMITTING PHYSICIAN Hospitalist; ATTENDING PHYSICIAN Internal Medicine; CONSULT PHYSICIAN Psychiatry & Neurology Neurology; EMERGENCY PHYSICIAN Student in an Organized Health Care Education/Training Program; FAMILY PHYSICIAN Family Medicine
DX: G43.909 Migraine, unspecified, not intractable, without status migrainosus (principal); R53.1 Weakness; F32.A Depression, unspecified; F41.9 Anxiety disorder, unspecified; K21.9 Gastro-esophageal reflux disease without esophagitis; Z79.02 Long term (current) use of antithrombotics/antiplatelets; Z79.82 Long term (current) use of aspirin; Z79.899 Other long term (current) drug therapy
CPT/HCPCS: 70496; 70498; 70551; 70553; 80053; 80061; 81003; 82607; 82728; 82746; 83036; 84443; 84484; 85025; 85610; 85652; 86618; 92523; 93306; 97162; 97166; 99285; A9575; G0378; Q9967